=== PATIENT | female | born 1990 | race Caucasian/White ===

== ENCOUNTER 2019-02-26 11:52 | Emergency (ER) | payer SELFPAY ==
[2019-02-26 12:47] LABS: Bilirubin Negative (Negative); Blood, Urine Negative (Negative); Clarity Clear (Clear); Glucose, Urine (Dipstick) Normal (Negative); Leukocyte Negative Leu/uL (Negative); Nitrite Negative (Negative); Protein, Urine (Dipstick) Negative (Neg-Trace); Urobilinogen Normal mg/dL (Less than 2)
[2019-02-26 13:03] LABS: #Lymphocytes 1.2 thou/uL (1.20-3.40); #Monocytes 0.6 thou/uL (0.11-0.59); #Neutrophils 3.1 thou/uL (1.40-6.50); %Lymphocytes 24.7 % (21.0-51.0); %Monocytes 10.9 % (0.0-10.0); %Neutrophils 62.5 % (42.0-75.0); Hemoglobin 12.8 g/dL (12.0-16.0); Mean Corpuscular Hemoglobin 30.9 pg (27.0-31.0); Mean Corpuscular Volume 90.9 fL (78.0-98.0); Mean Platelet Volume 9.8 fL (7.4-10.4); Platelet Count 131 thou/uL (130-400); RBC Distribution Width 11.3 % (11.5-14.5); Red Blood Cell (RBC) Count 4.15 mill/uL (4.20-5.40)
--- NOTE | 2019-02-26 13:51 | ULT ---
EXAM: Transabdominal and transvaginal pelvic ultrasound with Doppler PROVIDED CLINICAL HISTORY: Pain COMPARISON: None FINDINGS: Intrauterine gestational sac containing yolk sac and pole demonstrated. [place]ett-rump length corre sponding to a 5 week 5 day gestation demonstrated. heart tones are not evident. The left ovary appears sonographically unremarkable. The right ovary is not identified. There is no evidence f or free pelvic fluid. IMPRESSION: Intrauterine gestational sac containing yolk sac and pole with a crown-rump length correspondin g to a 5 week 5 day gestation, without demonstration of heart tones. This may be on the basis of early gestational age. Correlation with serial follow-up beta hCG values is recommended. Follow-up ultrasound may be useful as indicated.
[2019-02-28 00:15] LABS: Chlamydia by PCR Not Detected (NotDetected); GC by PCR Not Detected (NotDetected)
== END 2019-02-26 14:34 | disposition home or self-care (01) ==
LOC: ERS 11:52
DX: O20.0 Threatened abortion (principal); O99.511 Diseases of the respiratory system complicating pregnancy, first trimester; J45.909 Unspecified asthma, uncomplicated; Z87.891 Personal history of nicotine dependence; Z3A.13 13 weeks gestation of pregnancy
CPT/HCPCS: 36415; 76856; 81003; 84702; 85025; 86900; 86901; 87480; 87491; 87510; 87591; 87660

== ENCOUNTER 2019-03-15 09:42 | Emergency (ER) | payer MEDICAID, SELFPAY ==
[2019-03-15] MEDS ORDERED: Ondansetron PF 4 MG/2 ML Vial ONE (10:46)
[2019-03-15 11:05] LABS: #Eosinphils 0.1 thou/uL (0.0-0.7); #Lymphocytes 1.5 thou/uL (1.20-3.40); #Monocytes 0.4 thou/uL (0.11-0.59); #Neutrophils 3.1 thou/uL (1.40-6.50); %Basophils 0.5 % (0.0-1.0); %Eosinophils 1.3 % (0.0-10.0); %Lymphocytes 28.7 % (21.0-51.0); %Monocytes 8.5 % (0.0-10.0); %Neutrophils 61.1 % (42.0-75.0); Hemoglobin 12.9 g/dL (12.0-16.0); Mean Corpuscular HGB CONC 35.1 g/dL (32.0-36.0); Mean Corpuscular Hemoglobin 31.6 pg (27.0-31.0); Mean Platelet Volume 9.4 fL (7.4-10.4); Platelet Count 140 thou/uL (130-400); Red Blood Cell (RBC) Count 4.07 mill/uL (4.20-5.40); White Blood Cell (WBC) Count 5.1 thou/uL (4.8-10.8)
[2019-03-15 11:23] LABS: ALT (SGPT) Less than 7 U/L (8-55); AST (SGOT) 12 U/L (5-34); Albumin 4.3 g/dL (3.5-5.0); Alkaline Phosphatase 35 U/L (40-110); Anion Gap 10 mmol/L (10-20); BUN (Urea Nitrogen) 10 mg/dL (7.0-18.7); Bilirubin, Total 0.7 mg/dL (0.2-1.2); Calc. Creatinine Clearance 0 mL/min (70-130); Calcium 9.4 mg/dL (7.8-10.44); Carbon Dioxide 25 mmol/L (22-29); Chloride 102 mmol/L (98-107); Estimated GFR-MDRD Greater than 90; Globulin 2.7 g/dL (2.4-3.5); Glucose 108 mg/dL (70-105); Potassium 3.9 mmol/L (3.5-5.1); Sodium 133 mmol/L (136-145)
[2019-03-15 11:46] LABS: Bilirubin Negative (Negative); Blood, Urine Negative (Negative); Clarity Clear (Clear); Glucose, Urine (Dipstick) Normal (Negative); Leukocyte 25 Leu/uL (Negative); Nitrite Negative (Negative); Protein, Urine (Dipstick) 20 mg/dL (Neg-Trace); RBC/HPF 0-3 HPF (0-3); Squamous Epithelial 0-3 HPF (0-3); Urobilinogen Normal mg/dL (Less than 2); WBC/HPF 0-3 HPF (0-3)
[2019-03-15 11:48] LABS: Bacteria/HPF 1+ HPF (None Seen)
== END 2019-03-15 12:15 | disposition home or self-care (01) ==
LOC: ERS 09:42
DX: O21.0 Mild hyperemesis gravidarum (principal); O99.511 Diseases of the respiratory system complicating pregnancy, first trimester; J45.909 Unspecified asthma, uncomplicated; O99.341 Other mental disorders complicating pregnancy, first trimester; F32.9 Major depressive disorder, single episode, unspecified; Z3A.08 8 weeks gestation of pregnancy
CPT/HCPCS: 80053; 81003; 81015; 84702; 85025; 87077; 87086; 96361; 96374; J2405

== ENCOUNTER 2019-03-25 12:40 | Emergency (ER) | payer MEDICAID, OTHER ==
[2019-03-25] MEDS ORDERED: Ondansetron PF 4 MG/2 ML Vial ONE (13:53)
[2019-03-25] MEDS ORDERED: Ondansetron ODT 4 MG TAB ONE (14:03)
[2019-03-25 14:27] LABS: Bilirubin Negative (Negative); Blood, Urine Negative (Negative); Clarity Clear (Clear); Glucose, Urine (Dipstick) Normal (Negative); Leukocyte Negative Leu/uL (Negative); Nitrite Negative (Negative); Protein, Urine (Dipstick) Negative (Neg-Trace); Urobilinogen Normal mg/dL (Less than 2)
[2019-03-25 14:28] LABS: #Basophils 0.1 thou/uL (0.0-0.2); #Eosinphils 0.1 thou/uL (0.0-0.7); #Lymphocytes 1.3 thou/uL (1.20-3.40); #Monocytes 0.3 thou/uL (0.11-0.59); #Neutrophils 3.3 thou/uL (1.40-6.50); %Basophils 1.2 % (0.0-1.0); %Eosinophils 1.4 % (0.0-10.0); %Lymphocytes 25.6 % (21.0-51.0); %Monocytes 6.5 % (0.0-10.0); %Neutrophils 65.4 % (42.0-75.0); Mean Corpuscular HGB CONC 35.1 g/dL (32.0-36.0); Mean Corpuscular Hemoglobin 32.1 pg (27.0-31.0); Mean Corpuscular Volume 91.4 fL (78.0-98.0); Mean Platelet Volume 9.8 fL (7.4-10.4); Platelet Count 124 thou/uL (130-400); RBC Distribution Width 11.2 % (11.5-14.5); Red Blood Cell (RBC) Count 3.73 mill/uL (4.20-5.40); White Blood Cell (WBC) Count 5.1 thou/uL (4.8-10.8)
[2019-03-25 14:48] LABS: BHCG - Serum POSITIVE (NEGATIVE); Pregs Control Background? CLEAR/WHITE (CLR/WHITE); Pregs Control Bar Appear? YES (CONTROL BAR)
[2019-03-25 14:56] LABS: ALT (SGPT) Less than 7 U/L (8-55); AST (SGOT) 12 U/L (5-34); Albumin 4.2 g/dL (3.5-5.0); Alkaline Phosphatase 30 U/L (40-110); Anion Gap 12 mmol/L (10-20); BUN (Urea Nitrogen) 5 mg/dL (7.0-18.7); Bilirubin, Total 0.7 mg/dL (0.2-1.2); Calc. Creatinine Clearance 0 mL/min (70-130); Calcium 9.1 mg/dL (7.8-10.44); Carbon Dioxide 25 mmol/L (22-29); Chloride 103 mmol/L (98-107); Estimated GFR-MDRD Greater than 90; Globulin 2.4 g/dL (2.4-3.5); Glucose 82 mg/dL (70-105); Potassium 3.8 mmol/L (3.5-5.1); Protein, Total 6.6 g/dL (6.0-8.3); Sodium 136 mmol/L (136-145)
== END 2019-03-25 15:30 | disposition home or self-care (01) ==
LOC: ERS 12:40
DX: O21.9 Vomiting of pregnancy, unspecified (principal); Z3A.09 9 weeks gestation of pregnancy; O99.511 Diseases of the respiratory system complicating pregnancy, first trimester; O99.341 Other mental disorders complicating pregnancy, first trimester; F32.9 Major depressive disorder, single episode, unspecified; J45.909 Unspecified asthma, uncomplicated; Z79.899 Other long term (current) drug therapy
CPT/HCPCS: 36415; 80053; 81003; 84702; 84703; 85025; 99284; J2405; Q0162

== ENCOUNTER 2019-10-21 03:08 | Day surgery (SDC) | payer OTHER ==
[2019-10-21 03:47] VITALS: BP 131/70; TEMP 98.8; BMI 26.6
[2019-10-21] MEDS ORDERED: Lactated Ringer's 1,000 ML IV SCH (04:30)
[2019-10-21] MEDS ORDERED: hydrALAZINE 20 MG/ML VIAL SLOW IVP PRN (04:30)
--- NOTE | 2019-10-21 04:39 | PDOC.LDHP ---
Labor and Delivery H&P Chief complaint: contractions HPI: Patient is a 29 yo at 39.5 wga by 12.3 wk U/S who presents to L&D with complaint of contractions that have been ongoing for about 1-2 months but became more regular about 4 hours prior to arrival. Currently feeling contractions about every 10 minutes, per monitor is miguel about every 4-7 minutes. She also feels some vaginal pressure and thinks the head might be moving down. Denies any loss of fluid or vaginal bleeding/spotting. Endorses movement. Patient says she desires TOLAC and has previously discussed this with her OB Dr. Estevez but has not yet signed TOLAC paperwork. Current gestational age (weeks): 39 (39.5) Due date: 10/23/19 Grav: 3 Para: 2 (1102) OB History Details: with PPROM for 1st , delivered @ 30 weeks LTCS for NRFHT for 2nd , delivered @ term Had progesterone therapy during this & with 2nd Current complications: none Abnormal US findings: No Past Medical History: Denies any significant issues, no Rx meds Current medications: pre- vitamins Previous surgical history: low tranverse CS Allergies/Adverse Reactions: Allergies Allergy/AdvReac Type Severity Reaction Status Date / Time coconut Allergy Rash Verified 10/21/19 03:49 doxycycline Allergy Emesis Verified 10/21/19 03:49 Social history: none - Physical Exam Vital signs reviewed and normal: yes General: NAD, resting, breathing through contractions Heart: RRR Lungs: nonlabored breathing Abdomen: gravid Extremeties: no edema FHT: category 1 (accels x 2, baseline 135 bpm) [place] contractions every: 4-5 min - Vaginal Exam cm dilated: 1 Effacement: 50% Station: -1 - OB Labs Blood type: O RH: positive Antibody Screen: negative HIV: negative RPR: negative HEPSAg: negative GBS: positive Urine drug screen: not done Rubella: immune - Assessment Patient is a 29 yo at 39.5 wga who presents with contractions: #Third Trimester at Term -miguel about every 4-5 minutes on external monitor, sometimes spacing out to about 7 min apart -has received 17 doses of progesterone with this -cervical check at 0400 is /-1 -will plan to give 1L IVF bolus -will observe for 2-3 hours and reassess cervical check #Hx of LTCS -performed in 2016 for NRFHT -patient desires TOLAC Dispo: Stable, observe on L&D for next few hours. Give IVF. Discharge vs admit based on next cervical check. Addendum, 10/21/2019 0700 Patient cervical check unchanged. Contractions have spaced out to about every 10 min after 1 L IVF. Will discharge home with return precautions. Encouraged follow up with Dr. Estevez. Addendum - Attending - Attending Attestation Date/Time: 10/21/19 0715 I personally evaluated the patient and discussed the management with Dr. Lee. I agree with the History, Examination, Assessment and Plan documented above.
== END 2019-10-21 07:03 | disposition home or self-care (01) ==
LOC: L&D/OP 03:08
PROVIDERS: ATTEND Family Medicine
DX: O47.1 False labor at or after 37 completed weeks of gestation (principal); O34.211 Maternal care for low transverse scar from previous cesarean delivery; Z3A.39 39 weeks gestation of pregnancy; Z88.1 Allergy status to other antibiotic agents; Z91.018 Allergy to other foods
CPT/HCPCS: 96360; 99283

== ENCOUNTER 2019-10-27 12:11 | Inpatient (IN) | payer OTHER ==
[2019-10-27] MEDS ORDERED: hydrALAZINE 20 MG/ML VIAL SLOW IVP PRN (12:30)
[2019-10-27] MEDS ORDERED: Promethazine HCl 25 MG/ML VIAL IM PRN ×2 (12:30→14:08)
[2019-10-27] MEDS ORDERED: Ondansetron PF 4 MG/2 ML Vial IVP PRN ×3 (12:30→17:10)
[2019-10-27] MEDS ORDERED: Bicitra 30 ML UDCUP PO SCH (12:30)
[2019-10-27] MEDS ORDERED: CEFAZOLIN 2 GM in Premix Bag 1 BAG IVPB SCH (12:45)
[2019-10-27] MEDS: Lactated Ringer's 1,000 ML IV SCH ×3 (13:00→20:21)
[2019-10-27] MEDS ORDERED: Oxytocin 10 UNITS/ML VIAL ONE ×2 (13:13→14:20)
[2019-10-27] MEDS ORDERED: Ondansetron PF 4 MG/2 ML Vial ONE (13:13)
[2019-10-27] MEDS ORDERED: EPHEDRINE 25 MG/5 ML SYRINGE ONE (13:13)
[2019-10-27 13:16] LABS: Hemoglobin 9.7 g/dL (12.0-16.0); Mean Corpuscular HGB CONC 32.7 g/dL (32.0-36.0); Mean Corpuscular Volume 82.7 fL (78.0-98.0); Mean Platelet Volume 11.3 fL (7.4-10.4); Platelet Count 113 thou/uL (130-400); RBC Distribution Width 13.1 % (11.5-14.5); Red Blood Cell (RBC) Count 3.58 mill/uL (4.20-5.40); White Blood Cell (WBC) Count 7.2 thou/uL (4.8-10.8)
[2019-10-27 13:23] VITALS: BMI 28.3
[2019-10-27 13:50] LABS: HBSAg Index 0.15 S/CO (0-0.99); Hep B Surf Ag Non-Reactive S/CO (NonReactive)
[2019-10-27 13:51] LABS: Syphilis Antibody Nonreactive (Nonreactive); Syphilis Antibody Index 0.06 S/CO (<1.00 Non-Reactive)
[2019-10-27] MEDS ORDERED: Famotidine/PF 20 mg/2ml Vial ONE (13:56)
[2019-10-27] MEDS ORDERED: Meperidine HCl/PF 25 MG/ML VIAL SLOW IVP PRN (14:08)
[2019-10-27] MEDS ORDERED: Naloxone HCl 0.4 mg/ml Vial IV PRN (14:08)
[2019-10-27] MEDS ORDERED: HYDROmorphone 2 MG/ML VIAL SLOW IVP PRN (14:08)
[2019-10-27] MEDS ORDERED: Ondansetron HCl/PF 4 MG/2 ML Vial IVP PRN (14:08)
[2019-10-27] MEDS ORDERED: Promethazine HCl 25 MG SUPP PR PRN (14:08)
[2019-10-27] MEDS ORDERED: Ketorolac Tromethamine 30 MG/ML VIAL IVP PRN (14:08)
[2019-10-27] MEDS ORDERED: Naloxone HCl 0.4 mg/ml Vial IVP PRN ×2 (14:08)
[2019-10-27] MEDS ORDERED: L&D-Morphine 4 MG/ML VIAL SLOW IVP PRN (14:08)
[2019-10-27] MEDS ORDERED: diphenhydrAMINE 50 MG/ML VIAL IVP PRN (14:08)
[2019-10-27] MEDS ORDERED: Ketorolac Tromethamine 30 MG/ML VIAL IVP SCH ×2 (14:15→18:00)
[2019-10-27] MEDS ORDERED: Communication Order-Pharmacy FS SCH (14:15)
[2019-10-27] MEDS ORDERED: NS / Oxytocin 40 units/1000ml 1,000 ML IV SCH (17:10)
[2019-10-27] MEDS ORDERED: hydrALAZINE 20 MG/ML VIAL SLOW IVP SCH (17:10)
[2019-10-27] MEDS ORDERED: Simethicone Chewable 80 MG TAB PO PRN (17:10)
[2019-10-27] MEDS ORDERED: diphenhydrAMINE 25 MG CAP PO PRN (17:10)
[2019-10-27] MEDS ORDERED: Bisacodyl 10 MG SUPP PR PRN (17:10)
[2019-10-27] MEDS ORDERED: Lanolin Ointment 7 GM TUBE TOP PRN (17:10)
[2019-10-27] MEDS ORDERED: HYDROcodone/Acetaminophen 5/325 mg Tablet PO PRN (17:10)
[2019-10-27] MEDS ORDERED: Meperidine HCl/PF 25 MG/ML VIAL IM PRN (17:10)
--- NOTE | 2019-10-27 17:12 | PDOC.OPDEL ---
OB Operative/Delivery Note - Additional Findings/Plan Compilations/Other Findings: Date of Procedure: 10/27/2019 Primary Surgeon: Dr. Tong Estevez Corduroy Cutter Operator Surgeon: Dr. Kalin Lamar Procedure: Repeat low transverse caesarean section Preoperative Diagnosis: 1) Repeat Postoperative Diagnosis: 1) same as above Anesthesia: spinal Indications: The patient is a 29 year old G3,P2 female at 40.5 weeks gestation who presents for a repeat scheduled . Procedure in Detail: After risks, benefits, and alternatives were explained to the patient, she gave informed consent. Pre-operative antibiotics included Cefazolin 2 gram IV. The patient was taken to the operating room and spinal anesthesia was initiated. She was placed in the supine position with a left tilt and prepped and draped in usual sterile fashion. A Pfannenstiel incision was made with a scalpel and carried down to the level of the fascia which was sharply nicked. The fascial cut was extended bilaterally with Valadez scissors. The inferior and superior edges of the cut fascial edges were elevated with Zandra clamps and the underlying rectus muscles were sharply and bluntly dissected free. The recti were divided digitally and retracted manually. The peritoneum was entered bluntly and retracted manually. Bladder blade was placed. A low transverse score was made with the scalpel and the uterus was entered in the midline with the scalpel. Clear fluid was seen. The hysterotomy was extended manually. The infant was noted to be vertex and was easily delivered by fundal pressure. Cord clamped and cut and grossly normal female was handed to waiting nurse. Cord blood was obtained. Placenta was manually extracted, found to be intact with 3 vessel cord and discarded. The uterus was externalized and the endometrium was curetted with a dry lap. Bladder blade was replaced and the uterus was closed with a running locking #1 monocryl suture. Right edge of the hysterotomy was still oozing so a horizontal imbricating layer was placed. Following this hemostasis was noted. A layer of seprafilm was placed along the incision and anterior aspect of the uterus. The abdomen was irrigated with saline and suctioned free of clots. The uterus was internalized and the hysterotomy was again noted to be hemostatic. The fascia was closed with a running non-locking 0-PDS suture. The peritoneum was closed with a loose running 3-0 vircyl. The subcutaneous tissue was irrigated and approximated using interrupted 2-0 plain sutures. The skin was approximated with sancho and a pressure dressing was placed. All counts were correct. The patient tolerated the procedure well and was taken to the recovery room in stable condition. Quantified Blood Loss: 592 ml Complications: None Specimens: Cord blood sent to lab for blood type Findings: Grossly normal female infant with Apgars of 9 and 9. Grossly normal placenta with 3 vessel cord discarded. Drains: Holden to gravity draining clear urine
[2019-10-27] MEDS ORDERED: Sodium Chloride 0.9% 10 ML ONE (20:13)
[2019-10-27] MEDS: Ketorolac Tromethamine 30 MG/ML VIAL IVP SCH (20:27)
[2019-10-27] MEDS: Docusate Calcium (SURFAK) 240 MG CAP PO SCH (20:29)
[2019-10-27] MEDS: Ferrous Sulfate 325 MG TAB PO SCH (20:29)
[2019-10-28] MEDS ORDERED: Sodium Chloride 0.9% 10 ML ONE (02:20)
[2019-10-28] MEDS: Ketorolac Tromethamine 30 MG/ML VIAL IVP SCH ×2 (02:29→09:30)
[2019-10-28 08:51] LABS: Hemoglobin 7.7 g/dL (12.0-16.0); Mean Corpuscular HGB CONC 33.6 g/dL (32.0-36.0); Mean Corpuscular Hemoglobin 27.7 pg (27.0-31.0); Mean Corpuscular Volume 82.6 fL (78.0-98.0); Mean Platelet Volume 11.5 fL (7.4-10.4); Platelet Count 107 thou/uL (130-400); Red Blood Cell (RBC) Count 2.78 mill/uL (4.20-5.40); White Blood Cell (WBC) Count 9.2 thou/uL (4.8-10.8)
[2019-10-28] MEDS ORDERED: Adacel (T-DAP) 0.5 ML SYRINGE IM ONE (09:00)
[2019-10-28] MEDS: Docusate Calcium (SURFAK) 240 MG CAP PO SCH ×2 (09:30→20:37)
[2019-10-28] MEDS: Prenatal Vitamin 1 TAB PO SCH (09:30)
[2019-10-28] MEDS: Ferrous Sulfate 325 MG TAB PO SCH ×2 (09:31→20:38)
[2019-10-28] MEDS: Ibuprofen 800 MG TAB PO SCH ×2 (15:00→21:53)
[2019-10-28] MEDS: HYDROcodone/Acetaminophen 5/325 mg Tablet PO PRN (19:10)
[2019-10-29] MEDS: Ibuprofen 800 MG TAB PO SCH ×2 (05:49→14:18)
[2019-10-29] MEDS: HYDROcodone/Acetaminophen 5/325 mg Tablet PO PRN ×2 (05:49→12:31)
[2019-10-29] MEDS: Docusate Calcium (SURFAK) 240 MG CAP PO SCH (08:46)
[2019-10-29] MEDS: Ferrous Sulfate 325 MG TAB PO SCH (08:46)
[2019-10-29] MEDS: Prenatal Vitamin 1 TAB PO SCH (08:46)
[2019-10-29 13:36] VITALS: BP 123/78; TEMP 97.8
== END 2019-10-29 17:05 | disposition home or self-care (01) | DRG 788 ==
LOC: L&D 12:11 → L&D-LIB 12:28 → 3SE 17:15
PROVIDERS: ADMIT Family Medicine; ATTEND Family Medicine
PROC: 10D00Z1 Extraction of Products of Conception, Low, Open Approach (ICD-10-PCS; principal; 2019-10-27)
DX: O34.219 Maternal care for unspecified type scar from previous cesarean delivery (principal); O48.0 Post-term pregnancy; Z37.0 Single live birth; Z3A.40 40 weeks gestation of pregnancy
CPT/HCPCS: 36415; 51702; 85027; 86780; 86850; 86900; 86901; 87340; J0690; J1885; J2270; J2405; J2590; S0028